=== PATIENT | male | born 1960 | race Caucasian/White ===

== ENCOUNTER → 2017-11-29 10:34 | Outpatient (CLI) | payer OTHER, SELFPAY ==
[2017-11-29 11:26] LABS: AST(SGOT) 27 U/L (15-37); Alanine Aminotransfer ALT/SGPT 58 U/L (16-61); Alkaline Phosphatase 58 U/L (45-117); Bilirubin, Direct 0.12 mg/dL (0.00-0.30); Cholesterol 179 mg/dL (200); Globulin 3.2 g/dL (2.2-4.2); High Density Lipoprotein 55 mg/dL; Protein, Total 7.2 g/dL (6.4-8.2); Triglycerides 117 mg/dL; Very Low Density Lipoprotein 23 mg/dL (5-40)
== END ==
PROVIDERS: Family Provider Family Medicine; PCP Family Medicine; Visit Provider Internal Medicine Cardiovascular Disease
DX: I10 Essential (primary) hypertension (principal); E78.5 Hyperlipidemia, unspecified; I25.10 Atherosclerotic heart disease of native coronary artery without angina pectoris; Z79.899 Other long term (current) drug therapy
CPT/HCPCS: 36415; 80061; 80076

== ENCOUNTER → 2018-06-16 09:51 | Outpatient (CLI) | payer OTHER, SELFPAY ==
[2018-06-16 12:05] LABS: ALB/GLOB Ratio 1.3 RATIO (0.9-2.4); AST(SGOT) 27 U/L (15-37); Alanine Aminotransfer ALT/SGPT 45 U/L (16-61); Albumin, Serum 4.2 g/dL (3.2-5.0); Alkaline Phosphatase 49 U/L (45-117); Anion Gap 8 (5-15); BUN 10 mg/dL (7-18); BUN/Creat Ratio 9.6 RATIO (10-20); Calcium,Total 9.4 mg/dL (8.5-10.1); Chloride 101 mmol/L (98-107); Cholesterol 190 mg/dL (200); Creatinine, Serum 1.04 mg/dL (0.70-1.30); EST Glomerular Filtration Rate 77 mL/min (>60); Est Glom Filt Rate - Afr Amer 94 mL/min (>60); Globulin 3.2 g/dL (2.2-4.2); Glucose 124 mg/dL (74-106); High Density Lipoprotein 66 mg/dL; Potassium 3.8 mmol/L (3.5-5.1); Protein, Total 7.4 g/dL (6.4-8.2); Sodium Level 140 mmol/L (136-145); Triglycerides 96 mg/dL; Very Low Density Lipoprotein 19 mg/dL (5-40)
[2018-06-16 13:50] LABS: AST(SGOT) 23 U/L (15-37); Alanine Aminotransfer ALT/SGPT 44 U/L (16-61); Albumin, Serum 4.3 g/dL (3.2-5.0); Alkaline Phosphatase 52 U/L (45-117); Bilirubin, Direct 0.16 mg/dL (0.00-0.30); Globulin 3.2 g/dL (2.2-4.2); Protein, Total 7.5 g/dL (6.4-8.2)
== END ==
PROVIDERS: Physician Assistant Medical; Family Provider Family Medicine; PCP Family Medicine; Visit Provider Internal Medicine Cardiovascular Disease
DX: I10 Essential (primary) hypertension (principal); E78.5 Hyperlipidemia, unspecified; I25.10 Atherosclerotic heart disease of native coronary artery without angina pectoris
CPT/HCPCS: 36415; 80053; 80061; 80076

== ENCOUNTER → 2018-10-26 10:12 | Outpatient (CLI) | payer OTHER, SELFPAY ==
[2017-12-03 13:14] VITALS: BMI 29.9
[2018-10-26 11:42] LABS: AST(SGOT) 26 U/L (15-37); Alanine Aminotransfer ALT/SGPT 49 U/L (16-61); Albumin, Serum 4.3 g/dL (3.2-5.0); Alkaline Phosphatase 60 U/L (45-117); Bilirubin, Direct 0.18 mg/dL (0.00-0.30); Cholesterol 169 mg/dL (200); Globulin 3.1 g/dL (2.2-4.2); High Density Lipoprotein 67 mg/dL; Protein, Total 7.4 g/dL (6.4-8.2); Triglycerides 89 mg/dL; Very Low Density Lipoprotein 18 mg/dL (5-40)
--- OUTSIDE RECORDS SUMMARY | 2018-12-28 07:06 | XMS RPT_ITS ---
:1960 Author Organization OHIP Care Team Providers Name Role Phone Adela Vogel Attending Unavailable Herbert Yusuf Attending Unavailable Herbert Yusuf Referring [facility]available [facility] Unavailable Herbert Yusuf Attending Unavailable Herbert Yusuf Referring Unavailable [facility] Unavailable Adela Benitez Attending Unavailable Ever Horan Referring Unavailable [facility] Unavailable Herbert Yusuf Attending Unavailable Herbert Yusuf Referring Unavailable [facility] Unavailable PROBLEMS PROBLEMS DATE TYPE CONDITION / CODE ATTENDING STATUS SOURCE 12/03/2017 Unknown E78.5 - Obey Benitez Hyperlipidemia, Adela Garg Community unspecified / Hospital E78.5(ICD-10) Repository 12/03/2017 Unknown I25.10 - Obey Benitez Atherosclerotic heart Adela Garg [facility] disease [facility] coronary artery Repository without angina pectoris / I25.10(ICD-10) 11/29/2017 Unknown Z79.899 - Other long Herbert Yusuf Active [place]abel term (current) drug Community therapy / Hospital Z79.899(ICD-10) Repository 11/29/2017 Unknown I10 - Essential Herbert Yusuf Active [place] (primary) [facility] hypertension / Hospital I10(ICD-10) Repository PROCEDURES PROCEDURES No Procedure Records FoundRESULTS RESULTS LIVER PROFILE Collected: 10/26/2018 Status: F Source: [place] 10:18 AM [facility] REPOSITORY TYPE CODE TESTS RESULT OUT OF RANGE REFERENCE UNITS LAB L501.1500 6.4-8.2 g/dL Normal T PROT 7.4 LAB L501.1800 3.2-5.0 g/dL Normal ALB 4.3 LAB L501.1950 2.2-4.2 g/dL Normal GLOB 3.1 LAB L501.4100 15-37 U/L Normal AST 26 LAB L501.4305 45-117 U/L Normal ALK P 60 LAB L501.4405 16-61 U/L Normal ALT 49 LAB L501.4600 0.20-1.00 mg/dL Normal T BILI 0.50 LAB L501.4700 0.00-0.30 mg/dL Normal D BILI 0.18 Performed By: #### L500.3400, L500.4100 #### [facility] [address] [place], [address] LIPID PROFILE Collected: 10/26/2018 Status: F Source: ANA[place]EL 10:18 AM [facility] REPOSITORY TYPE CODE TESTS RESULT OUT OF RANGE REFERENCE UNITS LAB L501.4900 200 mg/dL Normal CHOL 169 Result Comment: <200 mg/dL Desirable 200-240 mg/dL Borderline >240 mg/dL High Risk LAB L501.5000 mg/dL Normal TRIG 89 Result Comment: The drugs N-Acetylcysteine and Metamizole may falsely depress this assay. Serum Triglycerides Reference Interval Normal <150 mg/dL Borderline high 150 - 199 mg/dL High 200 - 499 mg/dL Very High > or = 500 mg/dL LAB L501.6400 mg/dL Normal HDL 67 Result Comment: The drugs N-Acetylcysteine and Metamizole may falsely depress this assay. Reference Range HDL <40 mg/dL Low HDL Cholesterol HDL >or= 60 mg/dL High HDL Cholesterol LAB L501.6500 0-130 mg/dL Normal LDL 84 LAB L501.6600 5-40 mg/dL Normal VLDL 18 Performed By: #### L500.3400, L500.4100 #### [facility] [address] [place], [address] COMPREHENSIVE METABOLIC Collected: 06/16/2018 Status: F Source: ANABEL PROFIL 10:00 AM [facility] REPOSITORY Order Comment: Order Date: 05/26/18 Order Info: 0786-1 - CMP Order Info: 45490-2 - LIPID SEND COPY OF LIPID RESULT TO ALSO. TYPE CODE TESTS RESULT OUT OF RANGE REFERENCE UNITS LAB L501.0100 74-106 mg/dL High GLU 124 Result Comment: Fasting Glucose result from 100 to 125 mg/dL suggests IMPAIRED HOMEOSTASIS per A.D.A. criteria. Please note revised GLUCOSE reference range effective 2017. LAB L501.1000 7-18 mg/dL Normal BUN 10 LAB L501.1100 0.70-1.30 mg/dL Normal CREAT,SERUM 1.04 Result Comment: The validity of the calculated GFR AND GFRAA in patients over 70 years has not been determined. Clinical correlation is essential. LAB L501.1110 >60 mL/min Normal EST GFR 77 Result Comment: Non- GFR Calc LAB L501.1115 >60 mL/min Normal EST GFR - AA 94 Result Comment: GFR Calc LAB L501.1300 10-20 RATIO Low BUN/CRE 9.6 LAB L501.1500 6.4-8.2 g/dL Normal T PROT 7.4 LAB L501.1800 3.2-5.0 g/dL Normal ALB 4.2 LAB L501.1950 2.2-4.2 g/dL Normal GLOB 3.2 LAB L501.2000 0.9-2.4 RATIO Normal A/G 1.3 LAB L501.2200 8.5-10.1 mg/dL Normal CA 9.4 LAB L501.4100 15-37 U/L Normal AST 27 LAB L501.4305 45-117 U/L Normal ALK P 49 LAB L501.4405 16-61 U/L Normal ALT 45 LAB L501.4600 0.20-1.00 mg/dL Normal T BILI 0.70 LAB L501.5300 136-145 mmol/L Normal NA 140 LAB L501.5600 3.5-5.1 mmol/L Normal K 3.8 LAB L501.5900 98-107 mmol/L Normal CL 101 LAB L501.6100 21.0-32.0 mmol/L Normal CO2 31.0 LAB L501.6200 5-15 Normal GAP 8 Performed By: #### L500.4050, L500.4100 #### [facility] [address] [place], [place], [id number] LIPID PROFILE Collected: 06/16/2018 Status: F Source: [place] 10:00 AM [facility] REPOSITORY Order Comment: Order Date: 05/26/18 Order Info: 0786-1 - CMP Order Info: [id number] - LIPID SEND COPY OF LIPID RESULT TO ALSO. TYPE CODE TESTS RESULT OUT OF RANGE REFERENCE UNITS LAB L501.4900 200 mg/dL Normal CHOL 190 Result Comment: <200 mg/dL Desirable 200-240 mg/dL Borderline >240 mg/dL High Risk LAB L501.5000 mg/dL Normal TRIG 96 Result Comment: The drugs N-Acetylcysteine and Metamizole may falsely depress this assay. Serum Triglycerides Reference Interval Normal <150 mg/dL Borderline high 150 - 199 mg/dL High 200 - 499 mg/dL Very High > or = 500 mg/dL LAB L501.6400 mg/dL Normal HDL 66 Result Comment: The drugs N-Acetylcysteine and Metamizole may falsely depress this assay. Reference Range HDL <40 mg/dL Low HDL Cholesterol HDL >or= 60 mg/dL High HDL Cholesterol LAB L501.6500 0-130 mg/dL Normal LDL 105 LAB L501.6600 5-40 mg/dL Normal VLDL 19 Performed By: #### L500.4050, L500.4100 #### [facility] [address] [place], [place], [id number] LIVER PROFILE Collected: 06/16/2018 Status: F Source: [place] 10:00 AM [facility] REPOSITORY TYPE CODE TESTS RESULT OUT OF RANGE REFERENCE UNITS LAB L501.1500 6.4-8.2 g/dL Normal T PROT 7.5 LAB L501.1800 3.2-5.0 g/dL Normal ALB 4.3 LAB L501.1950 2.2-4.2 g/dL Normal GLOB 3.2 LAB L501.4100 15-37 U/L Normal AST 23 LAB L501.4305 45-117 U/L Normal ALK P 52 LAB L501.4405 16-61 U/L Normal ALT 44 LAB L501.4600 0.20-1.00 mg/dL Normal T BILI 0.80 LAB L501.4700 0.00-0.30 mg/dL Normal D BILI 0.16 Performed By: #### L500.3400 #### [facility] [address] [place], [address] CARDIOLOGY VISIT Observed: 12/06/2017 Status: F Source: [place] REPORT 10:19 AM [facility] REPOSITORY [facility] [address] [place] [address] OFFICE VISIT Date of Service: 12/03/17 MR#: [id number] Acct: [id number] Name: JEMAL ALDRICH Rep #: [id number] : 1960 Provider: Adela Benitez Age/Sex: 57/M Location: [facility] Status: Signed HPI HPI Details: JEMAL ALDRICH, is a 57 M who presents to the office today for for a cardiovascular follow-up. He has a history of coronary artery disease with myocardial infarction and stenting in his RCA in 2002. He also has a history of hypertension and hyperlipidemia. From a cardiac standpoint, patient is doing well. He does not have any chest discomfort/heaviness/tightness. His exercise tolerance is stable for his age. He walks 1-5 miles a day. He does not have any worsening symptoms of shortness of breath. He denies any PND. He does not have any orthopnea. He does not have any symptoms of congestive heart failure. He does not have any palpitations that he is aware of. He does not have any lightheadedness or dizziness. He does not have any near-syncope or syncope. He does not have any lower extremity edema. He does not have any symptoms of claudication. Intake Vital Signs12/03/17 Height 5 ft 5 in 12/03/17 Weight: 180 lb 12/03/17 Body Mass Index (BMI) 29.9 12/03/17 Blood Pressure 110/82 12/03/17 Blood Pressure Location Lt brachial Intake Visit Reasons: 6 M FU [employer] Required: No Accompanied by: None Is patient in pain?: No Allergies iodine Allergy (Severe, Verified 12/03/17 13:14) Anaphylaxis Medications aspirin 81 mg tablet,delayed release 81 mg PO QDAY 11/08/17 [History Confirmed 12/03/17] hydrochlorothiazide 25 mg tablet 25 mg PO QDAY 11/08/17 [History Confirmed 12/03/17] nitroglycerin 400 mcg/spray translingual 0.4 mg TRANSLINGUAL Q5M PRN 11/08/17 [History Confirmed 12/03/17] ramipril 10 mg capsule 10 mg PO QDAY #90 cap 11/08/17 [Rx Confirmed 12/03/17] simvastatin 80 mg tablet 80 mg PO QDAY #30 tab 11/12/17 [Rx Confirmed 12/03/17] PFSH Medical History Hypertension (Chronic) Atherosclerotic heart disease of [place] coronary artery without angina pectoris (Chronic) Hyperlipidemia (Chronic) Murmur (Chronic) Old myocardial infarction (Chronic) Surgical History Postsurgical percutaneous transluminal coronary angioplasty (PTCA) status (Chronic) Family History Father CAD (coronary artery disease) Hx CABG Diabetes Myocardial infarction Aortic aneurysm Mother Cancer Ovarian cancer Sister Diabetes Hypertension Hypothyroidism Sister Hypertension Sister Diabetes Hypothyroidism Brother cardiac stent Other Family history of hypertension Social History Smoking Status: Former smoker how long ago did patient quit smokin alcohol intake: current alcohol intake frequency: 0-2 drinks per day Alcohol type: wine substance use type: does not use caffeine: Yes Type: coffee Number of servings: 3 what type of physical activity do you participate in: walking frequency: daily duration: 15-30 minutes/day seatbelt use: always do you feel safe at home: Yes ROS Const Const: Negative for weakness, fatigue, fever(s) or headache(s) Eyes Eyes: Negative for blind spots, loss of peripheral vision or transient loss of vision ENT ENT: Negative for headache(s), dizziness, tinnitus or Nosebleed/epistaxis Cardio Chest Pain: No Palpitations: No Edema: None Muscle aches with walking: None Resp Respiratory: Negative for SOB with activity, SOB at rest, SOB orthopnea\SOB lying down or Cough GI GI: Negative nausea, vomiting, heartburn or vomiting blood/hematemesis : Negative for hematuria Musc Musc: Negative for muscle aches/ myalgia Neuro Neuro: Negative for weakness, headache(s), dizziness, near syncope, syncope, lightheadedness or orthostatic symptoms Gurpreet Hematologic/Lymphatic: Negative for easy bleeding Endo Endo: Negative for fatigue Cardiology Exam Const Appearance: cooperative, no acute distress and well developed Orientation: alert, awake and oriented x3 Head Head: normocephalic and atraumatic Mouth: moist mucous membranes Eyes General: appearance normal, both eyes and all related structures Conjunctivae: conjunctivae normal Pupils: PERRL EOM: EOM intact bilaterally Neck Neck: normal visual inspection, no lymphadenopathy and no JVD Carotids: Negative bruit Neck Mass: Negative Neck mass Chest Chest inspection: normal inspection of the chest and symmetric chest movement Auscultation: Bilateral: Clear to Auscultation Cardio Palpation: normal PMI Rate: regular rate Rhythm: regular rhythm Heart sounds: S1 normal and S2 normal; negative rub, gallop or murmur GI GI: normal to inspection, soft, no hepatosplenomegaly and bowel sounds present; negative tender Neuro General: alert, awake, oriented x3, CN's II-XI intact bilaterally and moves all extremities Extremities Pulses: Normal: Right Posterior Tibial Pulse, Left Posterior Tibial Pulse, Right Radial Pulse, Left Radial Pulse Lower Extremity Edema: None: Bilateral Psych Psychological: normal affect Assessment AND Plan 1. Atherosclerosis of [place] coronary artery of [place] heart without angina pectoris I25.10 Plan Stable, from a cardiac standpoint patient does not have any symptoms of angina. We recommend that they continue with current aggressive medical management and risk factor modification. Orders Orders: 2. Essential hypertension I10 Plan Blood pressure is well controlled on current medications, we do not recommend any changes at this time. 3. Pure hypercholesterolemia E78.00; E78.0 Plan Recent lipid profile demonstrates total cholesterol 179, HDL 55, LDL 101. Will not make any adjustments. We will continue to monitor Plan Detail Other Orders Orders: Additional Comments Thank you for allowing us to participate in patient's plan of care, if you have any questions please do not hesitate to call. This note was generated using a voice recognition system and there may be incorrect words, spelling or punctuation errors that were not noted when reviewing the office note prior to saving. Follow Up 9 Months (PFM) Coding Level of Care Code Off vis,est,level 3 Diagnoses Atherosclerosis of [place] coronary artery of [place] heart without angina pectoris I25.10 [place] vs. transplanted heart: [place] heart Essential hypertension I10 Hypertension type: essential hypertension Pure hypercholesterolemia E78.00; E78.0 Hyperlipidemia type: pure hypercholesterolemia Coding Level of Care Code Off vis,est,level 3 Diagnoses Atherosclerosis of [place] coronary artery of [place] heart without angina pectoris I25.10 [place] vs. transplanted heart: [place] heart Essential hypertension I10 Hypertension type: essential hypertension Pure hypercholesterolemia E78.00; E78.0 Hyperlipidemia type: pure hypercholesterolemia 12/06/17 1019 <Electronically signed by Adela LIN> Date Adela LIN Cosigner Signature: Date (if applicable) CC: LIVER PROFILE Collected: 11/29/2017 Status: F Source: ANABEL 10:40 AM [facility] REPOSITORY Order Comment: Order Date: 05/26/17 Order Info: 0788-1 - *Hepatic Function Panel Order Info: [id number] - *Lipid Profile CC PCP Comments: 12 hours fasting, may have water. Comments: 6 months TYPE CODE TESTS RESULT OUT OF RANGE REFERENCE UNITS LAB L501.1500 6.4-8.2 g/dL Normal T PROT 7.2 LAB L501.1800 3.2-5.0 g/dL Normal ALB 4.0 LAB L501.1950 2.2-4.2 g/dL Normal GLOB 3.2 LAB L501.4100 15-37 U/L Normal AST 27 LAB L501.4305 45-117 U/L Normal ALK P 58 LAB L501.4405 16-61 U/L Normal ALT 58 Result Comment: Please note revised ALT reference range effective 2017. LAB L501.4600 0.20-1.00 mg/dL Normal T BILI 0.60 LAB L501.4700 0.00-0.30 mg/dL Normal D BILI 0.12 Performed By: #### L500.3400 #### [facility] [address] [place], [place], [address] LIPID PROFILE Collected: 11/29/2017 Status: F Source: A[place]EL 10:40 AM [facility] REPOSITORY Order Comment: Order Date: 05/26/17 Order Info: 0788-1 - *Hepatic Function Panel Order Info: [id number] - *Lipid Profile CC PCP Comments: 12 hours fasting, may have water. Comments: 6 months TYPE CODE TESTS RESULT OUT OF RANGE REFERENCE UNITS LAB L501.4900 200 mg/dL Normal CHOL 179 Result Comment: <200 mg/dL Desirable 200-240 mg/dL Borderline >240 mg/dL High Risk LAB L501.5000 mg/dL Normal TRIG 117 Result Comment: The drugs N-Acetylcysteine and Metamizole may falsely depress this assay. Serum Triglycerides Reference Interval Normal <150 mg/dL Borderline high 150 - 199 mg/dL High 200 - 499 mg/dL Very High > or = 500 mg/dL LAB L501.6400 mg/dL Normal HDL 55 Result Comment: The drugs N-Acetylcysteine and Metamizole may falsely depress this assay. Reference Range HDL <40 mg/dL Low HDL Cholesterol HDL >or= 60 mg/dL High HDL Cholesterol LAB L501.6500 0-130 mg/dL Normal LDL 101 LAB L501.6600 5-40 mg/dL Normal VLDL 23 Performed By: #### L500.4100 #### [facility] [address] [place], [address] ALLERGIES ALLERGIES DATE TYPE / CODE NAME / CODE REACTION SEVERITY SOURCE 12/03/2017 Drug iodine/F006 Anaphylaxis SV [facility] Allergy/4160 076665([facility] [address](SNOMED ) Repository CT) ENCOUNTERS ENCOUNTERS ADMIT/DISCHARGE ACCOUNT ADMITTING ENCOUNTER LOCATION SOURCE NUMBER CLASS 10/26/2018 [id number] Ambulatory [place] Anabel 0 [facility] Hospital ing:LAB Repository 09/21/2018 [id number] Ambulatory BMSBuilding:B [place] 1 [facility] Repository 06/16/2018 [id number] Ambulatory [place] 3 [facility] ing:LAB Repository 12/03/2017/ [id number] Ambulatory BMSBuilding:B [place] 8 8 [facility] Repository 11/29/2017 [id number] Ambulatory [place] Anabel 5 [facility] ing:LAB Repository PAYERS PAYERS ENCOUNTER GUARANTOR PAYER SUBSCRIBER SOURCE 10/26/2018 EDWARD A Primary EDWARD A [place] [id number] Insurance:AULTCAREPol GASBARREDOB: Community [place], icy Number: [id number] [address]Lgc: [id number] Repository e Date:[id number] () [address], [place] [address]IF: 10/26/2018 Secondary NOT GIVENUNK [place] Insurance:SELF PAY [facility] Number: Effective Repository Date:2018-10-26 09/21/2018 EDWARD A Primary EDWARD A [place] [id number] Insurance:AULTCAREPol GASBARREDOB: Community [place], icy Number: [id number] [address]Tdf: [id number] Repository Date:[id number] [address] () [address] [place] [address]JI: 09/21/2018 Secondary NOT GIVENUNK [place] Insurance:SELF PAY [facility] Number: Effective Repository Date:2018-09-21 06/16/2018 EDWARD A Primary EDWARD A [place] [id number] Insurance:AULTCAREPol GASBARREDOB: [facility] [place] [place], icy Number: [id number] [address]Kkv: [id number] Repository Date:0890-17-00[address], [place] [address]BW: 06/16/2018 Secondary NOT GIVENUNK [place] Insurance:SELF PAY [facility] Number: Effective Repository Date:2018-06-16 12/03/2017 EDWARD A Primary EDWARD A [place] [id number] Insurance:AULTCAREPol ESTELLEREDOB: Community BRIAN SERRANO icy Number: [id number] [address]Fya: [id number] Repository Date:[id number] ) [address], [place] [address]LE: 12/03/2017 Secondary NOT GIVENUNK [place] Insurance:SELF PAY [facility] Number: Effective Repository Date:2017-11-10 11/29/2017 Edward A Primary Edward A [place] [id number] Insurance:LALOCAREKeegan SimmonsreDOB: [facility] Brian Serrano, icy Number: [id number] Kaseman Hospital [address]Vdo: [id number] Repository Date:0124-06-60[address] () [address], [place] [address]GU: 11/29/2017 Secondary NOT GIVENUNK [place] Insurance:SELF PAY [facility] Number: Effective Repository Date:2017-11-29
== END ==
PROVIDERS: Physician Assistant Medical; Family Provider Family Medicine; PCP Family Medicine; Referring Provider Internal Medicine Cardiovascular Disease; Visit Provider Internal Medicine Cardiovascular Disease
DX: E78.5 Hyperlipidemia, unspecified (principal)
CPT/HCPCS: 36415; 80061; 80076

== ENCOUNTER → 2019-05-01 | Outpatient (CLI) | payer OTHER, SELFPAY ==
[2018-11-02 11:36] VITALS: BMI 29.7
[2019-05-01 11:44] LABS: AST(SGOT) 29 U/L (15-37); Alanine Aminotransfer ALT/SGPT 39 U/L (16-61); Albumin, Serum 4.1 g/dL (3.2-5.0); Alkaline Phosphatase 57 U/L (45-117); Bilirubin, Direct 0.14 mg/dL (0.00-0.30); Cholesterol 176 mg/dL (200); Globulin 3.1 g/dL (2.2-4.2); High Density Lipoprotein 68 mg/dL; Protein, Total 7.2 g/dL (6.4-8.2); Triglycerides 92 mg/dL; Very Low Density Lipoprotein 18 mg/dL (5-40)
== END | disposition home or self-care (01) ==
LOC: LAB 10:36
PROVIDERS: Internal Medicine Cardiovascular Disease; Family Provider Family Medicine; PCP Family Medicine; Referring Provider Internal Medicine Cardiovascular Disease; Visit Provider Internal Medicine Cardiovascular Disease
DX: E78.5 Hyperlipidemia, unspecified (principal)
CPT/HCPCS: 36415; 80061; 80076

== ENCOUNTER → 2019-10-30 11:21 | Outpatient (CLI) | payer OTHER, SELFPAY ==
[2019-05-03 11:10] VITALS: BMI 28.9
[2019-10-30 13:12] LABS: AST(SGOT) 23 U/L (15-37); Alanine Aminotransfer ALT/SGPT 65 U/L (16-61); Albumin, Serum 4.2 g/dL (3.2-5.0); Alkaline Phosphatase 62 U/L (45-117); Bilirubin, Direct 0.15 mg/dL (0.00-0.30); Cholesterol 164 mg/dL (200); Globulin 3.4 g/dL (2.2-4.2); High Density Lipoprotein 62 mg/dL; Protein, Total 7.6 g/dL (6.4-8.2); Triglycerides 103 mg/dL; Very Low Density Lipoprotein 21 mg/dL (5-40)
== END ==
PROVIDERS: PCP Family Medicine; Referring Provider Internal Medicine Cardiovascular Disease; Visit Provider Internal Medicine Cardiovascular Disease
DX: E78.5 Hyperlipidemia, unspecified (principal)
CPT/HCPCS: 36415; 80061; 80076

== ENCOUNTER → 2020-04-25 | Outpatient (CLI) | payer OTHER, SELFPAY ==
[2019-11-02 10:18] VITALS: BMI 29.8
[2020-04-25 12:16] LABS: AST(SGOT) 21 U/L (15-37); Alanine Aminotransfer ALT/SGPT 51 U/L (16-61); Albumin, Serum 4.5 g/dL (3.2-5.0); Alkaline Phosphatase 55 U/L (45-117); Bilirubin, Direct 0.17 mg/dL (0.00-0.30); Cholesterol 179 mg/dL (200); Globulin 3.2 g/dL (2.2-4.2); High Density Lipoprotein 68 mg/dL; Protein, Total 7.7 g/dL (6.4-8.2); Triglycerides 95 mg/dL; Very Low Density Lipoprotein 19 mg/dL (5-40)
== END | disposition home or self-care (01) ==
LOC: LAB 11:13
PROVIDERS: PCP Family Medicine; Referring Provider Internal Medicine Cardiovascular Disease; Visit Provider Internal Medicine Cardiovascular Disease
DX: E78.00 Pure hypercholesterolemia, unspecified (principal)
CPT/HCPCS: 36415; 80061; 80076

== ENCOUNTER → 2020-05-15 | Outpatient (CLI) | payer OTHER, SELFPAY ==
[2020-04-30 09:52] VITALS: BMI 29.6
[2020-05-15 12:51] LABS: ALB/GLOB Ratio 1.3 RATIO (0.9-2.4); AST(SGOT) 21 U/L (15-37); Alanine Aminotransfer ALT/SGPT 48 U/L (16-61); Albumin, Serum 4.2 g/dL (3.2-5.0); Alkaline Phosphatase 53 U/L (45-117); Anion Gap 5 (5-15); BUN 16 mg/dL (7-18); BUN/Creat Ratio 16.4 RATIO (10-20); Calcium,Total 9.3 mg/dL (8.5-10.1); Chloride 104 mmol/L (98-107); Creatinine, Serum 0.97 mg/dL (0.70-1.30); EST Glomerular Filtration Rate 83 mL/min (>60); Est Glom Filt Rate - Afr Amer 100 mL/min (>60); Globulin 3.2 g/dL (2.2-4.2); Glucose 148 mg/dL (74-106); PSA,Total - Annual Screen 0.88 ng/mL (0.00-4.00); Protein, Total 7.4 g/dL (6.4-8.2); Sodium Level 138 mmol/L (136-145)
== END | disposition home or self-care (01) ==
LOC: MFPLAB 09:19
PROVIDERS: PCP Family Medicine; Referring Provider Family Medicine; Visit Provider Family Medicine
DX: I25.10 Atherosclerotic heart disease of native coronary artery without angina pectoris (principal); Z12.5 Encounter for screening for malignant neoplasm of prostate
CPT/HCPCS: 36415; 80053; 84153; G0103

== ENCOUNTER → 2020-05-21 | Outpatient (CLI) | payer OTHER, SELFPAY ==
[2020-04-30 09:52] VITALS: BMI 29.6
[2020-05-21 11:45] LABS: Anion Gap 4 (5-15); BUN 13 mg/dL (7-18); BUN/Creat Ratio 13.1 RATIO (10-20); Calcium,Total 9.3 mg/dL (8.5-10.1); Chloride 100 mmol/L (98-107); Creatinine, Serum 0.99 mg/dL (0.70-1.30); EST Glomerular Filtration Rate 81 mL/min (>60); Est Glom Filt Rate - Afr Amer 98 mL/min (>60); Glucose 130 mg/dL (74-106); Sodium Level 134 mmol/L (136-145)
[2020-05-21 11:47] LABS: Hemoglobin A1c 7.2 % (3.8-5.6)
== END | disposition home or self-care (01) ==
LOC: LAB 10:52
PROVIDERS: PCP Family Medicine; Referring Provider Physician Assistant Medical; Visit Provider Physician Assistant Medical
DX: E78.00 Pure hypercholesterolemia, unspecified (principal); I25.10 Atherosclerotic heart disease of native coronary artery without angina pectoris; Z83.3 Family history of diabetes mellitus
CPT/HCPCS: 36415; 80048; 83036

== ENCOUNTER 2020-06-18 13:00 | Outpatient (RCR) | payer OTHER, SELFPAY ==
[2020-04-30 09:52] VITALS: BMI 29.6
== END 2020-07-03 23:59 ==
LOC: DC 13:00
PROVIDERS: PCP Family Medicine; Visit Provider Family Medicine
DX: Z71.3 Dietary counseling and surveillance (principal); E11.9 Type 2 diabetes mellitus without complications
CPT/HCPCS: 97802; G0108

== ENCOUNTER 2020-07-17 13:00 | Outpatient (RCR) | payer OTHER, SELFPAY ==
[2020-04-30 09:52] VITALS: BMI 29.6
== END 2020-08-03 23:59 ==
LOC: DC 13:00
PROVIDERS: PCP Family Medicine; Visit Provider Family Medicine
DX: Z71.3 Dietary counseling and surveillance (principal); E11.9 Type 2 diabetes mellitus without complications
CPT/HCPCS: 97803; G0108

== ENCOUNTER 2020-08-08 13:54 | Outpatient (RCR) | payer OTHER, SELFPAY ==
[2020-04-30 09:52] VITALS: BMI 29.6
== END 2020-08-08 23:59 | disposition home or self-care (01) ==
LOC: DC 13:54
PROVIDERS: PCP Family Medicine; Visit Provider Family Medicine
DX: Z71.3 Dietary counseling and surveillance (principal); E11.9 Type 2 diabetes mellitus without complications
CPT/HCPCS: 97803

== ENCOUNTER → 2021-02-24 09:56 | Outpatient (CLI) | payer OTHER, SELFPAY ==
[2021-02-03 10:34] VITALS: BMI 29.2
[2021-02-24 13:23] LABS: AST(SGOT) 27 U/L (15-37); Alanine Aminotransfer ALT/SGPT 36 U/L (16-61); Alkaline Phosphatase 48 U/L (45-117); Bilirubin, Direct 0.15 mg/dL (0.00-0.30); Cholesterol 187 mg/dL (200); Globulin 2.8 g/dL (2.2-4.2); High Density Lipoprotein 69 mg/dL; Protein, Total 6.8 g/dL (6.4-8.2); Triglycerides 88 mg/dL; Very Low Density Lipoprotein 18 mg/dL (5-40)
[2021-02-24 14:58] LABS: ALB/GLOB Ratio 1.2 RATIO (0.9-2.4); AST(SGOT) 28 U/L (15-37); Alanine Aminotransfer ALT/SGPT 38 U/L (16-61); Albumin, Serum 3.9 g/dL (3.2-5.0); Alkaline Phosphatase 47 U/L (45-117); Anion Gap 6 (5-15); BUN 12 mg/dL (7-18); BUN/Creat Ratio 13.7 RATIO (10-20); Calcium,Total 8.9 mg/dL (8.5-10.1); Chloride 102 mmol/L (98-107); Creatinine, Serum 0.88 mg/dL (0.70-1.30); EST Glomerular Filtration Rate 93 mL/min (>60); Est Glom Filt Rate - Afr Amer 113 mL/min (>60); Globulin 3.2 g/dL (2.2-4.2); Glucose 133 mg/dL (74-106); Protein, Total 7.1 g/dL (6.4-8.2); Sodium Level 138 mmol/L (136-145); Thyroid Stim Hormone (TSH) 1.18 uIU/mL (0.358-3.74)
== END ==
PROVIDERS: Internal Medicine Cardiovascular Disease; PCP Family Medicine; Visit Provider Family Medicine
DX: E11.9 Type 2 diabetes mellitus without complications (principal); E78.00 Pure hypercholesterolemia, unspecified
CPT/HCPCS: 36415; 80053; 80061; 80076; 84443

== ENCOUNTER 2021-11-14 09:55 | Outpatient (CLI) | payer OTHER, SELFPAY ==
[2021-11-14 11:25] LABS: AST(SGOT) 18 U/L (15-37); Alanine Aminotransfer ALT/SGPT 46 U/L (16-61); Albumin, Serum 3.9 g/dL (3.2-5.0); Alkaline Phosphatase 68 U/L (45-117); Bilirubin, Direct 0.17 mg/dL (0.00-0.30); Cholesterol 199 mg/dL (200); Globulin 3.6 g/dL (2.2-4.2); High Density Lipoprotein 74 mg/dL; Protein, Total 7.5 g/dL (6.4-8.2); Triglycerides 80 mg/dL; Very Low Density Lipoprotein 16 mg/dL (5-40)
== END 2021-11-14 23:59 | disposition home or self-care (01) ==
PROVIDERS: PCP Family Medicine; Visit Provider Internal Medicine Cardiovascular Disease
DX: E78.00 Pure hypercholesterolemia, unspecified (principal)
CPT/HCPCS: 36415; 80061; 80076

== ENCOUNTER → 2023-11-22 | Outpatient (CLI) | payer MEDICARE, SELFPAY ==
--- OUTSIDE RECORDS SUMMARY | 2023-11-22 09:51 | XMS RPT_ITS | CCD ---
Author Name Unknown Address [address] [place] [address] Organization [facility] Care Team Providers Care Gis Database Administrator Name Role Phone Kimberly ALVARADO, Angelique Pfeiffer Unavailable Unavailable Eleazar Matt Unavailable Unavailable Paramjit MAJANO, Herbert Ward Unavailable [phone] SHERICE ROQUE Unavailable Unavailable CHRISTIANO Kline, Melanie Garg Unavailable UnavailAlexx Mckay Unavailable Unavailable Shaka, Eleazar Y Unavailable Unavailable Allergies Allergy Classification Reported Allergen(s) Allergy Type Date of Onset Reaction(s) Facility (6 sources) iodine drug allergy 12-05-2010 Possible, rash [facility] Work Phone: Medications Completed/Discontinued Medications Medication Drug Class(es) Dates Sig (Normalized) Sig (Original) aspirin 81 mg oral tablet (12 sources) Platelet Aggregation Inhibitor, Nonsteroidal Anti-inflammatory Drug Start: 07-28-2010 take 1 tablet by mouth once daily ASPIRIN 81 MG TABS One tablet by mouth daily ASPIRIN [id number] Alycia Oliva Problems Active Problems Problem Classification Problem Date Documented Da te Episodic/Chronic Acute myocardial infarction (20 sources) Subsequent [address] elevation (STEMI) myocardial infarction of inferior wall; Translations: [ST elevation (STEMI) myocardial infarction involving other coronary artery of inferior wall] Onset: 12-05-2010 Resolved: 01-20-2016 01-20-2016 Chronic Coronary atherosclerosis and other heart disease (12 sources) Coronary atherosclerosis; Translations: [Atherosclerotic heart disease of [place] coronary artery without angina pectoris] Onset: 12-05-2010 12-05-2010 Chronic Disorders of lipid metabolism (6 sources) Hyperlipidemia; Translations: [Hyperlipidemia, unspecified] Onset: 12-05-2010 12-05-2010 Chronic Essential hypertension (6 sources) Hypertensive disorder; Translations: [Essential (primary) hypertension] Onset: 10-12-2013 10-12-2013 Chronic Other nutritional; endocrine; and metabolic disorders (6 sources) Body mass index (BMI) 30.0-30.9, adult; Translations: [Body mass index (BMI) 30.0-30.9, adult] Onset: 01-07-2015 09-29-2016 Chronic Unclassified (3 sources) Long-term drug therapy; Translations: [Other intermodal dispatcher (current) drug therapy] Onset: 12-05-2010 12-05-2010 Past or Other Problems Problem Classification Problem Date Documented Da te Episodic/Chronic Coronary atherosclerosis and other heart disease (9 sources) Coronary angioplasty status; Translations: [History of myocardial infarction] Onset: 12-05-2010 12-05-2010 Episodic Heart valve disorders (6 sources) Heart murmur; Translations: [Cardiac murmur, unspecified] Onset: 12-05-2010 12-05-2010 Episodic Nonspecific chest pain (6 sources) Precordial pain; Translations: [Precordial pain] Onset: 12-05-2010 12-05-2010 Episodic Other aftercare (3 sources) Other custodial (current) drug therapy; Translations: [Other custodial (current) drug therapy] Onset: 12-05-2010 12-05-2010 Episodic Other circulatory disease (6 sources) History of myocardial infarction; Translations: [Abnormal result of cardiovascular function study, unspecified] Onset: 12-05-2010 12-05-2010 Episodic Other nutritional; endocrine; and metabolic disorders (6 sources) Body mass index (BMI) 29.0-29.9, adult; Translations: [Body mass index (BMI) 29.0-29.9, adult] Onset: 01-07-2015 01-07-2015 Episodic Other screening for suspected conditions (not mental disorders or infectious disease) (5 sources) Encounter for screening for malignant neoplasm of colon; Translations: [Abnormal result of cardiovascular function study, unspecified] Onset: 12-05-2010 12-05-2010 Episodic Residual codes; unclassified (6 sources) FH: Hypertension; Translations: [Family history of ischemic heart disease and other diseases of the circulatory system] 08-08-2015 Episodic Results Test Name Value Interpretation Reference Range Facil ity Vital Signs Date Time Vital Sign Value Performing Clinician Merritt malin 05-26-2017 12:49-0400 BMI (Body Mass Index) 29.49 kg/m2 [facility] Work Phone: 05-26-2017 12:49-0400 BP Diastolic 68 mm[Hg] [facility] Work Phone: 05-26-2017 12:49-0400 BP Systolic 126 mm[Hg] [facility] Work Phone: 05-26-2017 12:49-0400 Height 166.37 cm [facility] Work Phone: 05-26-2017 12:49-0400 Pulse (Heart Rate) 74 /min [facility] Work Phone: 05-26-2017 12:49-0400 Respiratory Rate 18 /min Chanceshalondaoksana [facility] Work Phone: 05-26-2017 12:49-0400 Weight 81.65 kg [facility] Work Phone: 09-29-2016 09:14-0500 BMI (Body Mass Index) 30.51 kg/m2 [facility] Work Phone: 09-29-2016 09:14-0500 BP Diastolic 70 mm[Hg] [facility]IANO [facility] Work Phone: 09-29-2016 09:14-0500 BP Systolic 110 mm[Hg] [facility] Work Phone: 09-29-2016 09:14-0500 BSA (Body Surface Area) 1.93 m2 CRHISTIANO [facility] Work Phone: 09-29-2016 09:14-0500 Pulse (Heart Rate) 76 /min [facility] Work Phone: 09-29-2016 09:14-0500 Respiratory Rate 16 /min [facility] Work Phone: 09-29-2016 09:14-0500 Weight 84.46 kg [facility]IANO [facility] Work Phone: 08-08-2015 08:33-0500 Heart rate 69 /min [facility]IAN[facility] Work Phone: 04-09-2014 08:40-0400 Heart rate 372 ms CHRITSIANO [facility] Work Phone: 10-08-2011 13:27-0500 Height 166.37 cm CH[facility]STIANO [facility] Work Phone: Encounters Encounter Date Encounter Type Care Provider Facility Start: 08-03-2017 End: 08-08-2017 [facility] Procedures Date Procedure Procedure Detail Performing Clinician Start: 05-26-2017 End: 05-26-2017 Dietary management education, guidance, and counseling Alexx Marshall Start: 05-26-2017 End: 12-03-2017 *Hepatic Function Panel Herbert Yusuf MD Start: 05-26-2017 End: 05-26-2017 Follow Up Appt 6 months Herbert Yusuf MD Start: 05-26-2017 End: 12-03-2017 Lipid panel [AGGREGATE] Herbert Yusuf MD Start: 05-26-2017 End: 05-26-2017 MMM Herbert Yusuf MD Start: 03-25-2017 End: 05-18-2017 *Hepatic Function Panel Herbert Yusuf MD Start: 03-25-2017 End: 11-24-2017 Lipid panel [AGGREGATE] Herbert Yusuf MD Start: 09-29-2016 End: 09-29-2016 Dietary management education, guidance, and counseling Melanie Kline RN Start: 09-29-2016 End: 09-29-2016 Follow Up Appt 6 months Adela ortiz PA-C Work Phone: Start: 09-29-2016 End: 09-29-2016 PFM Adela Benitez PA-C Work Phone: Start: 08-28-2016 End: 09-24-2016 *Hepatic Function Panel Herbert Yusuf MD Start: 08-28-2016 End: 09-24-2016 Lipid panel [AGGREGATE] Herbert Yusuf MD Start: 03-06-2016 End: 03-06-2016 Follow Up Appt 6 months Herbert Yusuf MD Start: 03-06-2016 End: 03-06-2016 MMM Herbert Yusuf MD Start: 02-04-2016 End: 02-26-2016 *Hepatic Function Panel Herbert Yusuf MD Start: 02-04-2016 End: 02-26-2016 Lipid panel [AGGREGATE] Herbert Yusuf MD Start: 08-08-2015 End: 08-09-2015 Documentation of current medications Adela Benitez PA-C Work Phone: Start: 08-08-2015 End: 08-08-2015 Electrocardiogram, complete Adela Martinez PA-C Work Phone: Start: 08-08-2015 End: 08-08-2015 Follow Up Appt 6 months Adela ortiz PA-C Work Phone: Start: 08-08-2015 End: 09-11-2016 Nuclear stress test -exercise Adela Benitez PA-C Work Phone: Start: 08-08-2015 End: 08-08-2015 PFM Adela Benitez PA-C Work Phone: Start: 05-27-2015 End: 08-06-2015 *Hepatic Function Panel Herbert Yusuf MD Start: 05-27-2015 End: 08-06-2015 Lipid panel [AGGREGATE] Herbert Yusuf MD Start: 01-07-2015 End: 01-08-2015 Documentation of current medications Herbert Yusuf MD Start: 01-07-2015 End: 01-07-2015 Follow Up Appt 6 months Herbert Yusuf MD Start: 01-07-2015 End: 01-07-2015 MMM Herbert Yusuf MD Start: 10-04-2014 End: 11-28-2014 *Hepatic Function Panel Herbert Yusuf MD Start: 10-04-2014 End: 11-28-2014 Lipid panel [AGGREGATE] Herbert Yusuf MD Start: 04-09-2014 End: 04-16-2014 *BMP Adela Benitez PA-C Work Phone: Start: 04-09-2014 End: 04-09-2014 Electrocardiogram, complete Adela Martinez PA-C Work Phone: Start: 04-09-2014 End: 04-09-2014 Follow Up Appt 6 months Adela ortiz PA-C Work Phone: Start: 04-09-2014 End: 04-09-2014 Follow Up BP Check Adela Benitez PA-C Work Phone: Start: 04-09-2014 End: 04-09-2014 PFM Adela Benitez PA-C Work Phone: Start: 04-05-2014 End: 04-05-2014 *Hepatic Function Panel Herbert Yusuf MD Start: 04-05-2014 End: 04-05-2014 Lipid panel [AGGREGATE] Herbert Yusuf MD Start: 10-12-2013 End: 03-28-2014 *Hepatic Function Panel Herbert Yusuf MD Start: 10-12-2013 End: 10-12-2013 Follow Up Appt 6 months Herbert Yusuf MD Start: 10-12-2013 End: 03-28-2014 Follow Up Appt Other Herbert Yusuf MD Start: 10-12-2013 End: 03-28-2014 Lipid panel [AGGREGATE] Herbert Yusuf MD Start: 10-12-2013 End: 10-12-2013 MMM Herbert Yusuf MD Start: 06-13-2013 End: 07-19-2013 *BMP Herbert Yusuf MD Start: 05-04-2013 End: 07-19-2013 *Hepatic Function Panel Herbert Yusuf MD Start: 05-04-2013 End: 07-19-2013 Lipid panel [AGGREGATE] Herbert Yusuf MD Start: 02-17-2013 End: 02-17-2013 Electrocardiogram, complete Adela Martinez PA-C Work Phone: Start: 02-17-2013 End: 02-17-2013 Follow Up Appt 6 months Adela ortiz PA-C Work Phone: Start: 02-17-2013 End: 02-17-2013 PFM Adela Benitez PA-C Work Phone: Start: 05-02-2012 End: 02-13-2013 *Hepatic Function Panel Herbert Yusuf MD Start: 05-02-2012 End: 05-02-2012 Follow Up Appt 6 months Herbert Yusuf MD Start: 05-02-2012 End: 02-13-2013 Lipid panel [AGGREGATE] Herbert Yusuf MD Start: 01-06-2012 End: 01-27-2012 *Hepatic Function Panel Herbert Yusuf MD Start: 01-06-2012 End: 01-27-2012 Lipid panel [AGGREGATE] Herbert Yusuf MD Start: 10-08-2011 End: 01-27-2012 *Hepatic Function Panel Herbert Yusuf MD Start: 10-08-2011 End: 10-08-2011 Follow Up Appt 6 months Herbert Yusuf MD Start: 10-08-2011 End: 01-27-2012 Lipid panel [AGGREGATE] Herbert Yusuf MD Plan of Treatment Date Care Activity Detail Author Start: 05-26-2017 End: 05-26-2017 Appointment Appointment [facility] Work Phone: Start: 05-26-2017 End: 12-03-2017 *Hepatic Function Panel *Hepatic Function Panel [facility] Work Phone: Start: 05-26-2017 End: 05-26-2017 Follow Up Appt 6 months Follow Up Appt 6 months [facility] Work Phone: Start: 05-26-2017 End: 12-03-2017 Lipid panel [AGGREGATE] *Lipid Profile CC PCP [facility] Work Phone: Start: 05-26-2017 End: 05-26-2017 MMM MMM [facility] Work Phone: Start: 03-25-2017 End: 05-18-2017 *Hepatic Function Panel *Hepatic Function Panel [facility] Work Phone: Start: 03-25-2017 End: 11-24-2017 Lipid panel [AGGREGATE] *Lipid Profile CC PCP [facility] Work Phone: Start: 09-29-2016 End: 09-29-2016 Follow Up Appt 6 months Follow Up Appt 6 months [facility] Work Phone: Start: 09-29-2016 End: 09-29-2016 PFM PFM [facility] Work Phone: Start: 08-28-2016 End: 09-24-2016 *Hepatic Function Panel *Hepatic Function Panel [facility] Work Phone: Start: 08-28-2016 End: 09-24-2016 Lipid panel [AGGREGATE] *Lipid Profile CC PCP [facility] Work Phone: Start: 03-06-2016 End: 03-06-2016 Follow Up Appt 6 months Follow Up Appt 6 months [facility] Work Phone: Start: 03-06-2016 End: 03-06-2016 MMM MMM [facility] Work Phone: Start: 02-04-2016 End: 02-26-2016 *Hepatic Function Panel *Hepatic Function Panel [facility] Work Phone: Start: 02-04-2016 End: 02-26-2016 Lipid panel [AGGREGATE] *Lipid Profile CC PCP [facility] Work Phone: Start: 08-08-2015 End: 08-08-2015 Electrocardiogram, complete EKG (In office) [facility] Work Phone: Start: 08-08-2015 End: 08-08-2015 Follow Up Appt 6 months Follow Up Appt 6 months [facility] Work Phone: Start: 08-08-2015 End: 08-08-2015 Nuclear stress test -exercise Nuclear stress test -exercise [facility] Work Phone: Start: 08-08-2015 End: 08-08-2015 PFM PFM [facility] Work Phone: Start: 05-27-2015 End: 08-06-2015 *Hepatic Function Panel *Hepatic Function Panel [facility] Work Phone: Start: 05-27-2015 End: 08-06-2015 Lipid panel [AGGREGATE] *Lipid Profile CC PCP [facility] Work Phone: Start: 01-07-2015 End: 01-07-2015 Follow Up Appt 6 months Follow Up Appt 6 months [facility] Work Phone: Start: 01-07-2015 End: 01-07-2015 MMM MMM [facility] Work Phone: Start: 10-04-2014 End: 11-28-2014 *Hepatic Function Panel *Hepatic Function Panel [facility] Work Phone: Start: 10-04-2014 End: 11-28-2014 Lipid panel [AGGREGATE] *Lipid Profile CC PCP [facility] Work Phone: Start: 04-09-2014 End: 04-16-2014 *BMP *BMP [facility] Work Phone: Start: 04-09-2014 End: 04-09-2014 Electrocardiogram, complete EKG (In office) [facility] Work Phone: Start: 04-09-2014 End: 04-09-2014 Follow Up Appt 6 months Follow Up Appt 6 months [facility] Work Phone: Start: 04-09-2014 End: 04-09-2014 Follow Up BP Check Follow Up BP Check [facility] Work Phone: Start: 04-09-2014 End: 04-09-2014 PFM PFM [facility] Work Phone: Start: 04-05-2014 End: 04-04-2014 *Hepatic Function Panel *Hepatic Function Panel [facility] Work Phone: Start: 04-05-2014 End: 04-04-2014 Lipid panel [AGGREGATE] *Lipid Profile CC PCP [facility] Work Phone: Start: 10-12-2013 End: 03-28-2014 *Hepatic Function Panel *Hepatic Function Panel [facility] Work Phone: Start: 10-12-2013 End: 10-12-2013 Follow Up Appt 6 months Follow Up Appt 6 months [facility] Work Phone: Start: 10-12-2013 End: 03-28-2014 Follow Up Appt Other Follow Up Appt Other [facility] Work Phone: Start: 10-12-2013 End: 03-28-2014 Lipid panel [AGGREGATE] *Lipid Profile CC PCP [facility] Work Phone: Start: 10-12-2013 End: 10-12-2013 MMM MMM [facility] Work Phone: Start: 06-13-2013 End: 07-19-2013 *BMP *BMP [facility] Work Phone: Start: 05-04-2013 End: 07-19-2013 *Hepatic Function Panel *Hepatic Function Panel [facility] Work Phone: Start: 05-04-2013 End: 07-19-2013 Lipid panel [AGGREGATE] *Lipid Profile [facility] Work Phone: Start: 02-17-2013 End: 02-17-2013 Electrocardiogram, complete EKG (In office) [facility] Work Phone: Start: 02-17-2013 End: 02-17-2013 Follow Up Appt 6 months Follow Up Appt 6 months [facility] Work Phone: Start: 02-17-2013 End: 02-17-2013 PFM PFM [facility] Work Phone: Start: 05-02-2012 End: 02-13-2013 *Hepatic Function Panel *Hepatic Function Panel [facility] Work Phone: Start: 05-02-2012 End: 05-02-2012 Follow Up Appt 6 months Follow Up Appt 6 months [facility] Work Phone: Start: 05-02-2012 End: 02-13-2013 Lipid panel [AGGREGATE] *Lipid Profile [facility] Work Phone: Start: 01-06-2012 End: 01-27-2012 *Hepatic Function Panel *Hepatic Function Panel [facility] Work Phone: Start: 01-06-2012 End: 01-27-2012 Lipid panel [AGGREGATE] *Lipid Profile [facility] Work Phone: Start: 10-08-2011 End: 01-27-2012 *Hepatic Function Panel *Hepatic Function Panel [facility] Work Phone: Start: 10-08-2011 End: 10-08-2011 Follow Up Appt 6 months Follow Up Appt 6 months [facility] Work Phone: Start: 10-08-2011 End: 01-27-2012 Lipid panel [AGGREGATE] *Lipid Profile [facility] Work Phone: Patient Education [facility] Work Phone: Payers Date Payer Category Payer Unknown [id number] Summary Purpose Family History No Family History Records Found Advance Directives No Advanced Directives Records Found Additional Source Comments (unrecognized sect ion and content) No Status Records Found INFORMATION SOURCE (unrecogn ized section and content) FOR RECORDS PERTAINING TO PATIENTS WHO ARE OR HAVE BEEN ENROLLED IN A CHEMICAL DEPENDENCY/SUBSTANCEABUSE PROGRAM, SOME INFORMATION MAY BE OMITTED. This clinical summary was aggregated from multiple sources. Caution should be exercised in using it in the provision of clinical care. This summary normalizes information from multiple sources, and as a consequence, information in this document may materially change the coding, format and clinical context of patient data. In addition, data may be omitted in some cases. CLINICAL DECISIONS SHOULD BE BASED ON THE PRIMARY CLINICAL RECORDS. [employer] [facility]. provides no warranty or guarantee of the accuracy or completeness of information in this document.
[2023-11-22 11:43] LABS: ALB/GLOB Ratio 1.2 RATIO (0.9-2.4); AST(SGOT) 22 U/L (15-37); Alanine Aminotransfer ALT/SGPT 56 U/L (16-61); Albumin, Serum 4.1 g/dL (3.2-5.0); Alkaline Phosphatase 63 U/L (45-117); Anion Gap 3 (5-15); BUN 12 mg/dL (7-18); Calcium,Total 9.3 mg/dL (8.5-10.1); Chloride 101 mmol/L (98-107); Cholesterol 191 mg/dL (200); Creatinine, Serum 0.93 mg/dL (0.70-1.30); EST Glomerular Filtration Rate 87 mL/min (>60); Est Glom Filt Rate - Afr Amer 105 mL/min (>60); Globulin 3.4 g/dL (2.2-4.2); Glucose 237 mg/dL (74-106); High Density Lipoprotein 71 mg/dL; Protein, Total 7.5 g/dL (6.4-8.2); Sodium Level 134 mmol/L (136-145); Triglycerides 103 mg/dL; Very Low Density Lipoprotein 21 mg/dL (5-40)
[2023-11-22 11:49] LABS: Hemoglobin A1c 10.6 % (3.8-5.6)
== END | disposition home or self-care (01) ==
LOC: LAB 09:30
PROVIDERS: PCP Family Medicine; Referring Provider Physician Assistant Medical; Visit Provider Physician Assistant Medical
DX: I25.10 Atherosclerotic heart disease of native coronary artery without angina pectoris (principal); E11.9 Type 2 diabetes mellitus without complications; Z95.5 Presence of coronary angioplasty implant and graft
CPT/HCPCS: 36415; 80053; 80061; 83036

== ENCOUNTER → 2023-11-29 | Outpatient (CLI) | payer MEDICARE, SELFPAY ==
--- OUTSIDE RECORDS SUMMARY | 2023-11-29 07:00 | XMS RPT_ITS | CCD ---
Author Name Unknown Address [address] [place] [address] Organization [facility] Care Team Providers Care Dog Pound Attendant Name Role Phone Kimberly ALVARADO, Angelique Pfeiffer Unavailable Unavailable Eleazar Matt Unavailable Unavailable Paramjit MAJANO, Herbert Ward Unavailable SHERICE ROQUE Unavailable Unavailable CHRISTIANO Kline, Melanie Garg Unavailable UnavailAlexx Mckay Unavailable Unavailable Shaka, Eleazar Y Unavailable Unavailable Allergies Allergy Classification Reported Allergen(s) Allergy Type Date of Onset Reaction(s) Facility (6 sources) iodine drug allergy 12-05-2010 Possible, rash [facility] Work Phone: Medications Completed/Discontinued Medications Medication Drug Class(es) Dates Sig (Normalized) Sig (Original) aspirin 81 mg oral tablet (12 sources) Platelet Aggregation Inhibitor, Nonsteroidal Anti-inflammatory Drug Start: 07-28-2010 take 1 tablet by mouth once daily ASPIRIN 81 MG TABS One tablet by mouth daily ASPIRIN [id number] Alycia Oliva Problems Active Problems Problem Classification Problem Date Documented Da te Episodic/Chronic Acute myocardial infarction (20 sources) Subsequent [address] elevation (STEMI) myocardial infarction of inferior wall; Translations: [ST elevation (STEMI) myocardial infarction involving other coronary artery of inferior wall] Onset: 12-05-2010 Resolved: 01-20-2016 01-20-2016 Chronic Coronary atherosclerosis and other heart disease (12 sources) Coronary atherosclerosis; Translations: [Atherosclerotic heart disease of [place] coronary artery without angina pectoris] Onset: 12-05-2010 [...] (3 sources) Long-term drug therapy; Translations: [Other long term acute care registered nurse (current) drug therapy] Onset: 12-05-2010 12-05-2010 Past [...] 12-05-2010 Episodic Other aftercare (3 sources) Other alf (current) drug therapy; Translations: [Other alf (current) drug therapy] Onset: 12-05-2010 12-05-2010 Episodic [...] Phone: 05-26-2017 12:49-0400 Height 166.37 cm [facility] Work Phone: 05-26-2017 12:49-0400 Pulse [...] 09:14-0500 BSA (Body Surface Area) 1.93 m2 [facility] Work Phone: 09-29-2016 09:14-0500 Pulse (Heart Rate) 76 /min [facility] Work Phone: 09-29-2016 09:14-0500 Respiratory Rate 16 /min [facility] Work Phone: 09-29-2016 09:14-0500 Weight 84.46 kg [facility] Work Phone: 08-08-2015 08:33-0500 Heart rate 69 /min [facility] Work Phone: 04-09-2014 08:40-0400 Heart rate 372 ms [facility] Work Phone: 10-08-2011 13:27-0500 Height 166.37 cm [facility] Work Phone: Encounters Encounter Date Encounter Type Care Provider Facility Start: 08-03-2017 End: 08-08-2017 [facility] Procedures Date Procedure Procedure Detail Performing Clinician Start: 05-26-2017 End: 05-26-2017 Dietary management education, guidance, and counseling Alexx Marshall Start: 05-26-2017 End: 12-03-2017 *Hepatic Function Panel Herbert Yusuf MD Start: 05-26-2017 End: 05-26-2017 Follow Up Appt 6 months Herbret Yusuf MD Start: 05-26-2017 End: 12-03-2017 Lipid [...] Author Start: 05-26-2017 End: 05-26-2017 Appointment Appointment [facility] Work Phone: Start: 05-26-2017 End: 12-03-2017 *Hepatic Function Panel *Hepatic Function Panel [facility] Work Phone: Start: 05-26-2017 End: 05-26-2017 Follow Up Appt 6 months Follow Up Appt 6 months [facility] Work Phone: Start: 05-26-2017 End: 12-03-2017 Lipid panel [AGGREGATE] *Lipid Profile CC PCP [facility] Work Phone: Start: 05-26-2017 End: 05-26-2017 MMM MMM [facility] Work Phone: Start: 03-25-2017 End: 05-18-2017 *Hepatic Function Panel *Hepatic Function Panel [facility] Work Phone: Start: 03-25-2017 End: 11-24-2017 Lipid panel [AGGREGATE] *Lipid Profile CC PCP [facility] Work Phone: Start: 09-29-2016 End: 09-29-2016 Follow Up Appt 6 months Follow Up Appt 6 months [facility] Work Phone: Start: 09-29-2016 End: 09-29-2016 PFM PFM [facility] Work Phone: Start: 08-28-2016 End: 09-24-2016 *Hepatic Function Panel *Hepatic Function Panel [facility] Work Phone: Start: 08-28-2016 End: 09-24-2016 Lipid panel [AGGREGATE] *Lipid Profile CC PCP [facility] Work Phone: Start: 03-06-2016 End: 03-06-2016 Follow Up Appt 6 months Follow Up Appt 6 months [facility] Work Phone: Start: 03-06-2016 [...] 6 months Follow Up Appt 6 months [facility] Work Phone: Start: 08-08-2015 End: 08-08-2015 Nuclear stress test -exercise Nuclear stress test -exercise [facility] Work Phone: Start: 08-08-2015 End: 08-08-2015 PFM PFM [facility] Work Phone: Start: 05-27-2015 End: 08-06-2015 *Hepatic Function Panel *Hepatic Function Panel [facility] Work Phone: Start: 05-27-2015 End: 08-06-2015 Lipid panel [AGGREGATE] *Lipid Profile CC PCP [facility] Work Phone: Start: 01-07-2015 End: 01-07-2015 Follow Up Appt 6 months Follow Up Appt 6 months [facility] Work Phone: Start: 01-07-2015 End: 01-07-2015 MMM MMM [facility] Work Phone: Start: 10-04-2014 End: 11-28-2014 *Hepatic Function Panel *Hepatic Function Panel [facility] Work Phone: Start: 10-04-2014 End: 11-28-2014 Lipid panel [AGGREGATE] *Lipid Profile CC PCP [facility] Work Phone: Start: 04-09-2014 End: 04-16-2014 *BMP *BMP [facility] Work Phone: Start: 04-09-2014 End: 04-09-2014 Electrocardiogram, complete EKG (In office) [facility] Work Phone: Start: 04-09-2014 End: 04-09-2014 Follow Up Appt 6 months Follow Up Appt 6 months [facility] Work Phone: Start: 04-09-2014 End: 04-09-2014 Follow Up BP Check Follow Up BP Check [facility] Work Phone: Start: 04-09-2014 End: 04-09-2014 PFM PFM [facility] Work Phone: Start: 04-05-2014 End: 04-04-2014 *Hepatic Function Panel *Hepatic Function Panel [facility] Work Phone: Start: 04-05-2014 End: 04-04-2014 Lipid panel [AGGREGATE] *Lipid Profile CC PCP [facility] Work Phone: Start: 10-12-2013 End: 03-28-2014 *Hepatic Function Panel *Hepatic Function Panel [facility] Work Phone: Start: 10-12-2013 End: 10-12-2013 Follow Up Appt 6 months Follow Up Appt 6 months [facility] Work Phone: Start: 10-12-2013 End: 03-28-2014 Follow Up Appt Other Follow Up Appt Other [facility] Work Phone: Start: 10-12-2013 End: 03-28-2014 Lipid panel [AGGREGATE] *Lipid Profile CC PCP [facility] Work Phone: Start: 10-12-2013 End: 10-12-2013 MMM MMM [facility] Work Phone: Start: 06-13-2013 End: 07-19-2013 *BMP *BMP [facility] Work Phone: Start: 05-04-2013 End: 07-19-2013 *Hepatic Function Panel *Hepatic Function Panel [facility] Work Phone: Start: 05-04-2013 End: 07-19-2013 Lipid panel [AGGREGATE] *Lipid Profile [facility] Work Phone: Start: 02-17-2013 End: 02-17-2013 Electrocardiogram, complete EKG (In office) [facility] Work Phone: Start: 02-17-2013 End: [...] 6 months Follow Up Appt 6 months [facility] Work Phone: Start: 05-02-2012 [...] [facility] Work Phone: Patient Education [facility] Work Phone: Payers Date Payer Category Payer Unknown [id number] Summary Purpose Family History No Family History [...] BE BASED ON THE PRIMARY CLINICAL RECORDS. [employer] [facility]. provides no warranty or guarantee of the accuracy or completeness of information in this document.
--- NOTE | 2023-11-29 11:32 | STRESSREP ---
Stress Test Report Exercise myocardial perfusion stress test. 63-year-old man with a history of coronary disease Stress protocol: Resting EKG demonstrates normal sinus rhythm with a rate of 66 bpm resting blood pressure is 112/84 mmHg. The patient exercised according to the regular Darian protocol for a total duration of 11 minutes completing 2 minutes into stage IV of the Darian protocol and attaining a maximum heart rate of 141 bpm which was 90 of maximum predicted heart rate; the maximum workload was 13.6 metabolic equivalents. At rest there were no ST or T wave changes noted to suggest ischemia and at peak exercise upsloping ST changes only were noted which did not meet the criteria for ischemia. No clinical angina was noted the test was terminated due to the target heart rate being achieved/fatigue. The peak blood pressure was 160/72 mmHg. Rate-pressure product was 22,500. Myocardial perfusion protocol. 11.2 mCi of technetium 99m sestamibi was injected at rest. The patient exercised according to regular Darian protocol for total duration of 11 minutes and at peak exercise 33.8 mCi of technetium 99m sestamibi was injected stress images were obtained stress and rest images were reconstructed in comparing the short axis vertical long and horizontal long axis. Gated images were also obtained. Perfusion SPECT analysis: Review of the stress images demonstrate normal uptake of tracer noted in all areas of the myocardium. The resting images similarly demonstrate normal uptake of tracer noted in all areas of the myocardium. No areas of reversibility are noted to suggest ischemia no previous infarct was noted. There is diaphragmatic attenuation noted involving the inferior wall. Gated SPECT analysis: The gated ejection fraction is normal. Conclusion: Normal exercise myocardial perfusion stress test at a high workload Preserved ejection fraction.
== END | disposition home or self-care (01) ==
PROVIDERS: PCP Family Medicine; Referring Provider Physician Assistant Medical; Visit Provider Physician Assistant Medical
DX: I25.10 Atherosclerotic heart disease of native coronary artery without angina pectoris (principal)
CPT/HCPCS: 78452; 93017; A9500; A4216

== ENCOUNTER → 2024-02-14 | Outpatient (CLI) | payer MEDICARE, SELFPAY ==
--- NOTE | 2024-02-14 08:43 | AAAS_ITS ---
Reason For Study: AAA Screeing Aorta Measurements Aorta Doppler Measurements Proximal aorta measures2.09cm x 2.29cm. in cross- Peak systolic flow velocities within the proximal sectional axis. aorta measure 80 cm/sec. Proximal aorta measures2.45cm. in longitudinal Peak systolic flow velocities within the mid aorta axis. measure 78 cm/sec. Mid aorta measures1.96cm x 1.93cm. in cross- Peak systolic flow velocities within the distal sectional axis. aorta measure 78 cm/sec. Mid aorta measures1.93cm. in longitudinal axis. Distal aorta measures1.86cm x 1.83cm. in cross- sectional axis. Distal aorta measures1.90cm. in longitudinal axis. Left Iliac Artery Left iliac artery measures 1.06cm x 1.04 cm. in the cross-sectional axis. Left iliac artery measures 1.14 cm. in the longitudinal axis. Peak systolic velocity in the left iliac artery measures 103 cm/sec. Right Iliac Artery Right iliac artery measures 1.10cm x 1.12 cm. in the cross-sectional axis. Right iliac artery measures 1.05 cm. in the longitudinal axis. Peak systolic velocity in the right iliac artery measures 94 cm/sec. Procedure Exam performed in department. VL/AAA Screening Interpretation Summary Maximal diameter of the abdominal aorta approximately at 2.09 x 2.29 cm which i s normal. Normal aortic flow velocity identified. Normal left common iliac artery measuring 1.06 x 1.04 cm in diameter Normal right common iliac artery measuring 1.1 x 1.12 cm in diameter Ordering Physician: Ever Horan Referring Physician: Ever Horan Performed By: Mandi Betts, PEPE, RVT
== END | disposition home or self-care (01) ==
LOC: CVS 08:43
PROVIDERS: PCP Family Medicine; Referring Provider Family Medicine; Visit Provider Family Medicine
DX: Z13.6 Encounter for screening for cardiovascular disorders (principal)
CPT/HCPCS: 76706

== ENCOUNTER 2024-03-13 11:41 | Emergency (ER) | payer MEDICARE, SELFPAY ==
[2024-03-13 11:42] VITALS: BP 125/106; PULSE 59; RESP 16; TEMP 36; O2SAT 98; BMI 29.9
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
--- NOTE | 2024-03-13 12:15 | CT_ITS ---
STUDY: CT CERVICAL SPINE WITHOUT CONTRAST REASON FOR EXAM: Male, 63 years old. Neck pain, paresthesia RADIATION DOSAGE (If Supplied By Facility): CTDIvol = ( 19.80 ) mGy, DLP = ( 463.63 ) mGycm TECHNIQUE: High resolution transaxial imaging was performed without contrast material. Sagittal and coronal images were reconstructed. Individualized dose optimization techniques were used for this CT. COMPARISON: None FINDINGS: Normal craniovertebral junction. Normal anterior atlantoaxial articulation. Normal odontoid process. Normal cervical lordosis. Normal vertebral bodies and posterior osseous elements. C2-3: Normal endplates. Normal disc height and morphology. Normal central canal and intervertebral neuroforamina. C3-4: Normal endplates. Normal disc height and morphology. Normal central canal and intervertebral neuroforamina. C4-5: Normal endplates. Normal disc height and morphology. Normal central canal and intervertebral neuroforamina. C5-6: Normal endplates. Normal disc height and morphology. Normal central canal and intervertebral neuroforamina. C6-7: Normal endplates. Normal disc height and morphology. Normal central canal and intervertebral neuroforamina. C7-T1: Normal endplates. Normal disc height and morphology. Normal central canal and intervertebral neuroforamina. Normal visualized soft tissue structures. CT/Spine Cervical without Contras IMPRESSION: Normal unenhanced CT examination of the cervical spine. Electronically Signed: Juan Estrada MD at 12:49 EDT ,
[2024-03-13 13:41] VITALS: BP 116/88; PULSE 58; RESP 16; O2SAT 96
[2024-03-13 14:03] VITALS: BP 119/85; PULSE 59; RESP 16; TEMP 36.2; O2SAT 98
== END 2024-03-13 14:05 | disposition home or self-care (01) ==
PROVIDERS: Emergency Provider Emergency Medicine; PCP Family Medicine; Visit Provider Emergency Medicine
DX: S16.1XXA Strain of muscle, fascia and tendon at neck level, initial encounter (principal); E11.9 Type 2 diabetes mellitus without complications; M79.605 Pain in left leg; Z87.891 Personal history of nicotine dependence; E78.00 Pure hypercholesterolemia, unspecified; I10 Essential (primary) hypertension; I25.10 Atherosclerotic heart disease of native coronary artery without angina pectoris; V43.52XA Car driver injured in collision with other type car in traffic accident, initial encounter; R20.2 Paresthesia of skin
CPT/HCPCS: 72125; 99282

== ENCOUNTER → 2024-08-08 | Outpatient (CLI) | payer MEDICARE, SELFPAY ==
[2024-08-08 11:46] LABS: AST(SGOT) 30 U/L (15-37); Alanine Aminotransfer ALT/SGPT 64 U/L (16-61); Alkaline Phosphatase 58 U/L (45-117); Bilirubin, Direct 0.15 mg/dL (0.00-0.30); Cholesterol 176 mg/dL (200); Globulin 3.1 g/dL (2.2-4.2); High Density Lipoprotein 78 mg/dL; Protein, Total 7.1 g/dL (6.4-8.2); Triglycerides 95 mg/dL; Very Low Density Lipoprotein 19 mg/dL (5-40)
== END | disposition home or self-care (01) ==
LOC: LAB 10:23
PROVIDERS: PCP Family Medicine; Referring Provider Physician Assistant Medical; Visit Provider Physician Assistant Medical
DX: E78.00 Pure hypercholesterolemia, unspecified (principal)
CPT/HCPCS: 36415; 80061; 80076

== ENCOUNTER → 2025-02-27 | Outpatient (CLI) | payer MEDICARE, SELFPAY ==
[2025-02-27 13:08] LABS: Anion Gap 13 (5-15); BUN 20 mg/dL (4-19); BUN/Creat Ratio 22.4 RATIO (10-20); Calcium,Total 10.1 mg/dL (7.6-11.0); Carbon Dioxide 26.4 mmol/L (21.0-32.0); Chloride 97 mmol/L (98-108); Creatinine, Serum 0.88 mg/dL (0.70-1.20); EST Glomerular Filtration Rate 95 (>60); Glucose 120 mg/dL (70-99); PSA,Total - Annual Screen 0.86 ng/mL (0.02-4.00); Potassium 3.9 mmol/L (3.3-5.1); Sodium Level 135 mmol/L (133-145); Vitamin B12 574 pg/mL (180-914)
== END | disposition home or self-care (01) ==
LOC: MFPLAB 11:02
PROVIDERS: PCP Family Medicine; Referring Provider Family Medicine; Visit Provider Family Medicine
DX: E11.65 Type 2 diabetes mellitus with hyperglycemia (principal); Z12.5 Encounter for screening for malignant neoplasm of prostate
CPT/HCPCS: 36415; 80048; 82607; 84153; 84403; 84443; G0103

== ENCOUNTER → 2025-08-13 | Outpatient (CLI) | payer MEDICARE, SELFPAY ==
[2025-08-13 13:04] LABS: AST(SGOT) 28 U/L (<=37); Alanine Aminotransfer ALT/SGPT 31 U/L (<=46); Albumin, Serum 4.8 g/dL (3.4-4.8); Alkaline Phosphatase 55 U/L (40-129); Bilirubin, Direct 0.25 mg/dL (0.00-0.30); Cholesterol 167 mg/dL (<=200); Globulin 2.6 g/dL (2.2-4.2); Low Density Lipoprotein Calc. 72 mg/dL; Triglycerides 74 mg/dL; Very Low Density Lipoprotein 15 mg/dL (5-40); cholesterol:hdl ratio screen 2.06
== END | disposition home or self-care (01) ==
LOC: LAB 11:08
PROVIDERS: PCP Family Medicine; Referring Provider Physician Assistant Medical; Visit Provider Physician Assistant Medical
DX: E78.00 Pure hypercholesterolemia, unspecified (principal)
CPT/HCPCS: 36415; 80061; 80076